=== PATIENT | male | born 1985 | race Caucasian/White ===

== ENCOUNTER 2020-07-27 22:03 | Emergency (ER) | payer SELFPAY ==
[~2020-07-27] VITALS: Ht 172.7 cm; Wt 81.6 kg
[2020-07-27 22:10] VITALS: Ht 172.7 cm; Wt 81.6 kg
[2020-07-27 22:45] VITALS: BP 138/93
== END 2020-07-27 22:45 | disposition other institution (70) ==
LOC: ED 22:03
DX: S83.91XA Sprain of unspecified site of right knee, initial encounter (principal); X58.XXXA Exposure to other specified factors, initial encounter; Y93.89 Activity, other specified; Y92.89 Other specified places as the place of occurrence of the external cause; Y99.8 Other external cause status
CPT/HCPCS: 90715

== ENCOUNTER 2020-07-27 22:03 | Emergency (ER) | payer OTHER | END 2020-07-27 22:45 | disposition other institution (70) | LOC: ED 22:03 | DX: Z02.89 Encounter for other administrative examinations (principal) ==